=== PATIENT | male | born 1985 ===

== ENCOUNTER 2017-01-28 20:19 | Emergency (ER) | payer SELFPAY ==
[2017-01-28 20:27] VITALS: BP 128/83; PULSE 66; RESP 18; TEMP 98.2; O2SAT 98
--- NOTE | 2017-01-28 21:27 | C.PDOC ---
History Of Present Illness 31 y/o male presents to ED with complaints of dental pain for 4 days. Patient states he has history of similar symptoms in the past and was told he needs tooth removed. As per girlfriend patient denies difficulty breathing, difficulty swallowing, fever. Reports taking over the counter medication with no relief. No other complaints at this time. 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) History/Exam Limitations: no limitations Onset/Duration Of Symptoms: Days Current Symptoms Are (Timing): Still Present Past Medical History Reviewed: Historical Data, Nursing Documentation, Vital Signs Vital Signs: Last Vital Signs Temp 98.2 F 01/28/17 20:26 Pulse 66 01/28/17 20:26 Resp 18 01/28/17 20:26 BP 128/83 01/28/17 20:26 Pulse Ox 98 01/28/17 21:36 - Medical History PMH: No Chronic Diseases Surgical History: No Surg Hx Family History: States: No Known Family Hx - Social History Hx Alcohol Use: No Hx Substance Use: No - Immunization History Hx Tetanus Toxoid Vaccination: No Hx Influenza Vaccination: No Hx Pneumococcal Vaccination: No Review Of Systems Except As Marked, All Systems Reviewed And Found Negative. Constitutional: Negative for: Fever, Chills ENT: Positive for: Mouth Pain (Dental) Cardiovascular: Negative for: Chest Pain Skin: Negative for: Rash Neurological: Negative for: Weakness, Numbness Physical Exam - Physical Exam Appears: Non-toxic, No Acute Distress Skin: Normal Color, Warm, Dry, No Rash Head: Atraumatic, Normacephalic Eye(s): bilateral: Normal Inspection, EOMI Nose: Normal Oral Mucosa: Moist Tongue: Normal Appearing, No Swelling Lips: Normal Appearing, No Swelling Teeth: Caries (many), Other (Poor dentition. Tenderness to left mandibular molar ) Gingiva: No Erythema, Swelling (Mild gingival ), No Abscess Throat: Normal, No Erythema Neck: Normal ROM, Supple Chest: Symmetrical Cardiovascular: Rhythm Regular Respiratory: No Accessory Muscle Use Neurological/Psych: Oriented x3, Normal Speech ED Course And Treatment O2 Sat by Pulse Oximetry: 98 (RA) Pulse Ox Interpretation: Normal Progress Note: Pt treated with Lidocain Miky, TOradol and Clinda. Pt was instructed to follow up with dentist in 1-2 days. Disposition - Disposition Referrals: [facility] [Outside] Disposition: HOME/ ROUTINE Disposition Time: 21:35 Condition: STABLE Additional Instructions: Follow up with your primary medical doctor or clinic in 2-5 days for further evaluation. Take medications as prescribed. Return to the emergency department at any time if symptoms persist or worsen. Prescriptions: Clindamycin [Cleocin] 300 mg PO Q6 #28 cap Naproxen [Naprosyn] 1 tab PO BID PRN #20 tab PRN Reason: Pain traMADol [Ultram] 50 mg PO Q8 #20 tab Instructions: Dental Caries (ED) Forms: [place] (Frisian) - Clinical Impression Clinical Impression: Dental caries - PA / UTILIZATION SPECIALIST / Resident Statement MD/DO has reviewed & agrees with the documentation as recorded. - Scribe Statement The provider has reviewed the documentation as recorded by the Scribania Cote All medical record entries made by the Mimiibania were at my direction and personally dictated by me. I have reviewed the chart and agree that the record accurately reflects my personal performance of the history, physical exam, medical decision making, and the department course for this patient. I have also personally directed, reviewed, and agree with the discharge instructions and disposition.
== END 2017-01-28 21:40 | disposition home or self-care (01) ==
LOC: C.ER 20:19
DX: K02.9 Dental caries, unspecified (principal)
CPT/HCPCS: 96372; 99283; J1885